=== PATIENT | female | born 2000 | race Caucasian/White ===

== ENCOUNTER 2021-10-25 14:26 | Emergency (ER) | payer MEDICAID ==
[~2021-10-25] VITALS: Ht 154.9 cm; Wt 81.6 kg
[2021-10-25 14:32] VITALS: BP 122/71
--- NOTE | 2021-10-25 14:36 | NUR ---
Pt ambulated to bed 05.
[2021-10-25 15:35] LABS: BASOPHILS % (AUTO) 0.5 % (0.0-2.0); EOSINOPHILS # (AUTO) 0.2 K/uL (0-0.4); EOSINOPHILS % (AUTO) 2.5 % (0.0-4.0); HEMATOCRIT 29.1 % (36-48); LYMPHOCYTES # (AUTO) 2.5 K/uL (2.5-16.5); LYMPHOCYTES % (AUTO) 29.1 % (20.5-51.1); MEAN CORPUSCULAR HEMOGLOBIN 30 pg (27-31); MEAN CORPUSCULAR HGB CONC 34 g/dL (33-37); MEAN CORPUSCULAR VOLUME 88.1 fL (80-94); MONOCYTES # (AUTO) 0.4 K/uL (0.8-1.0); MONOCYTES % (AUTO) 4.2 % (1.7-9.3); NEUTROPHILS # (AUTO) 5.5 K/uL (1.8-7.7); NEUTROPHILS % (AUTO) 63.7 % (42.2-75.2); PLATELET COUNT (AUTO) 372 K/uL (140-450); RED CELL DISTRIBUTION WIDTH 13.4 % (11.6-13.7); WHITE BLOOD COUNT (AUTO) 8.7 K/uL (4.8-10.8)
--- NOTE | 2021-10-25 15:39 | NUR ---
ULTRASOUND AT BEDSIDE
--- NOTE | 2021-10-25 15:49 | NUR ---
LAB AT BEDSIDE
--- NOTE | 2021-10-25 15:50 | NUR ---
21 Y/O FEMALE C/O VAGINAL BLEEDING, ABD CRAMPING, AND DIZZINESS X YESTERDAY. PT STATES SHE HAD ON 10/19, WAS 12 WKS . ABD SOFT NON TENDER. PT STATES 5/10 PAIN. DENIES ANY NAUSEA/VOMITING/DIARRHEA. MEDHX: DENIES NKA
[2021-10-25 15:54] LABS: ALBUMIN 3.3 g/dL (3.4-5.0); ANION GAP 16.5 (8-16); CARBON DIOXIDE 23.5 mmol/L (21-32); CREATININE 0.8 mg/dL (0.6-1.3); TOTAL BILIRUBIN 0.4 mg/dL (0.0-1.0)
[2021-10-25 16:01] LABS: PROTHROMBIN TIME 10.2 secs (10.8-13.4)
[2021-10-25 16:27] LABS: BILIRUBIN,URINE NEGATIVE (NEGATIVE); BLOOD, URINE 3+ (NEGATIVE); LEUKOCYTE ESTERASE ,URINE TRACE (NEGATIVE); UGLUCOSE NEGATIVE (NEGATIVE)
[2021-10-25 16:29] LABS: APPEARANCE,URINE HAZY (CLEAR)
[2021-10-25 16:30] LABS: COLOR,URINE RED (YELLOW)
--- NOTE | 2021-10-25 16:30 | NUR ---
Patient awake, resting in bed. Vital Signs within normal limits. Respirations even and unlabored. Chest rise is symmetrical. Will continue to monitor.
[2021-10-25 16:44] LABS: NITRITE, URINE POSITIVE (NEGATIVE); RBC,URINE >100 /HPF (0-5); WBC,URINE NONE SEEN /HPF (0-5)
[2021-10-25] MEDS ORDERED: IBUP-2213 PO (17:06)
[2021-10-25] MEDS ORDERED: [UNRECOGNIZED DRUG - CODE] PO (17:06)
[2021-10-25] MEDS ORDERED: CEPH-588 PO (17:08)
[2021-10-25 17:27] VITALS: BP 117/70
--- NOTE | 2021-10-25 17:27 | NUR ---
Note undone in EDM - 10/25/21 at 1728 by [email or web address] DCPatient discharged with v/s stable. Written and verbal after care instructions given and explained. Patient alert, oriented and verbalized understanding of instructions. Ambulatory with steady gait. All questions addressed prior to discharge. ID band removed. Patient advised to follow up with PMD. Rx of KEFLEX, IBUPROFEN, MISOPROSTOL given. Patient educated on indication of medication including possible reaction and side effects. Opportunity to ask questions provided and answered.
== END 2021-10-25 17:27 | disposition home or self-care (01) ==
LOC: MED 14:26
DX: O03.4 Incomplete spontaneous abortion without complication (principal)
CPT/HCPCS: 36415; 76856; 80053; 81001; 81025; 84702; 85025; 85610; 85730; 86886; 86900; 86901; 87086; 99284; Q0092